=== PATIENT | female | born 1950 | race Caucasian/White ===

== ENCOUNTER → 2025-07-13 12:37 | Outpatient (REF) | payer MEDICARE, OTHER, SELFPAY ==
[2025-07-13 13:15] LABS: Hematocrit 41.3 % (37.0-47.0); Hemoglobin 14.2 g/dL (12.0-16.0); Mean Corp Hgb Conc. 34.4 g/dL (33.0-37.0); Mean Corpuscular Volume 96.5 fL (81.0-99.0); Nucleated Red Blood Cells % 0 %; Platelet Count 216 10^3/uL (130-400); Red Cell Dist. Width 12.9 % (11.5-14.5)
[2025-07-13 13:20] LABS: INR 1.02; PT 13.9 Sec (11.4-14.6)
[2025-07-13 13:25] LABS: ALT (SGPT) 26 U/L (0-35); AST (SGOT) 33 U/L (14-36); Albumin 4.9 g/dl (3.5-5.0); Alkaline Phosphatase 49 U/L (38-126); Blood Urea Nitrogen 10 mg/dl (7-17); Calcium 9.8 mg/dl (8.4-10.2); Carbon Dioxide 28 mmol/L (22-30); Chloride 101 mmol/L (98-107); Glucose 117 mg/dl (70-99); Magnesium 2.1 mg/dl (1.6-2.3); Potassium 4.4 mmol/L (3.5-5.1); Sodium 139 mmol/L (135-145); Total Protein 7.7 g/dl (6.3-8.2); eGFR > 60.00
== END ==
LOC: SDSPAT 12:37
PROVIDERS: ATTENDING PHYSICIAN Internal Medicine Cardiovascular Disease; FAMILY PHYSICIAN Student in an Organized Health Care Education/Training Program; OTHER PHYSICIAN Internal Medicine Cardiovascular Disease
DX: I48.0 Paroxysmal atrial fibrillation (principal)
CPT/HCPCS: 36415; 75572; 80053; 83735; 85025; 85610; 86850; 86900; 86901; 93005; Q9967

== ENCOUNTER → 2025-08-28 11:15 | Outpatient (REF) | payer MEDICARE, OTHER, SELFPAY ==
[2025-08-28 12:20] LABS: Hematocrit 41.0 % (37.0-47.0); Hemoglobin 13.7 g/dL (12.0-16.0); Mean Corp Hgb Conc. 33.4 g/dL (33.0-37.0); Mean Corpuscular Volume 97.9 fL (81.0-99.0); Nucleated Red Blood Cells % 0 %; Platelet Count 201 10^3/uL (130-400); Red Cell Dist. Width 13.0 % (11.5-14.5)
[2025-08-28 12:36] LABS: INR 1.00; PT 13.5 Sec (11.4-14.6)
[2025-08-28 12:53] LABS: ALT (SGPT) 31 U/L (0-35); AST (SGOT) 35 U/L (14-36); Albumin 4.7 g/dl (3.5-5.0); Alkaline Phosphatase 51 U/L (38-126); Blood Urea Nitrogen 7 mg/dl (7-17); Calcium 9.6 mg/dl (8.4-10.2); Carbon Dioxide 33 mmol/L (22-30); Chloride 100 mmol/L (98-107); Glucose 97 mg/dl (70-99); Magnesium 2.2 mg/dl (1.6-2.3); Potassium 4.4 mmol/L (3.5-5.1); Sodium 137 mmol/L (135-145); Total Protein 7.5 g/dl (6.3-8.2); eGFR > 60.00
== END ==
LOC: SDSPAT 11:15
PROVIDERS: ATTENDING PHYSICIAN Internal Medicine Cardiovascular Disease; FAMILY PHYSICIAN Student in an Organized Health Care Education/Training Program; REFERRING PHYSICIAN Internal Medicine Cardiovascular Disease
DX: I48.0 Paroxysmal atrial fibrillation (principal)
CPT/HCPCS: 36415; 80053; 83735; 85025; 85610; 86850; 86900; 86901; 93005

== ENCOUNTER 2025-09-26 07:55 | Day surgery (SDC) | payer MEDICARE, OTHER, SELFPAY ==
[2025-07-13 12:50] VITALS: BMI 17.8
[2025-08-28 11:51] VITALS: BMI 18.0
[2025-09-26] VITALS (17 sets, daily range): BP systolic 141–191; BP diastolic 52–76
[2025-09-26 11:38] LABS: ACT-LR - POC 282 Seconds (116-155)
[2025-09-26 11:54] LABS: ACT-LR - POC 314 Seconds (116-155)
--- NOTE | 2025-09-26 12:12 | ITS.CL.ABL ---
[employer] - Ablation
Ablation
Procedure Report:
ELECTROPHYSIOLOGY ABLATION STUDY
DATE:: September 26, 2025�����������������������������REFERRING: Dr. Cooper Kidd
INDICATION: Paroxysmal supraventricular tachycardia in the form of atrial fibrillation.� Prior history of mitral valve repair
HISTORY: See H and P.��As above
ANTIARRHYTHMIC DRUG: Multaq
PRE-PROCEDURE SAROJ: No intracardiac thrombus. Multiple jets of mild mitral digitation which are MISSY ring
PRESENTING RHYTHM: Sinus bradycardia
'TIME-OUT':��called and confirmed.
SEDATION/ANESTHESIA:��provided via the anesthesia department using general anesthesia (LMA).
INTRAVENOUS/ARTERIAL ACCESS:
Right femoral venous -8Fr
Left femoral venous - 8 Fr, 6 Fr
Lidocaine and [id number] suture bilaterally postprocedure
Ultrasound guidance for bilateral femoral vein access was utilized by me to obtain access with demonstration of normal anatomy
CHADS-VASC Score:
HAS-Bled Score
PROCEDURE:
1.��A decapolar CS catheter was placed within the CS for mapping and pacing.��This was also used as the reference catheter for the 3-D map.
2. The intracardiac ultrasound catheter was positioned in the RA to identify the FO for targeting of transseptal puncture, assist��in identification of the pulmonary vein ostia, monitoring pre and post ablation pulmonary vein flow velocities,
monitoring for 'bubble' formation during RF application as a sign of thermal injury,��and to monitor for pericardial effusion during mapping and ablation procedure.���Left atrial size, LV ejection fraction, and pulmonary vein flows were monitored
pre and post ablation procedure. The other valves were inspected and found to be free of significant regurgitation or stenosis.
3.��Half of the calculated heparin bolus was administered prior to the first transeptal puncture.��Transseptal puncture was performed to diagnose RA and LA pressure so that safetey of LA mapping and ablation could be further assessed, and to access
the left atrium and pulmonary veins for mapping and ablation.��This entailed advancing an 16.8 Afghan RF wire, sheath with dilator into the superior vena cava and withdrawing both (monitoring intracardiac ultrasound, fluoroscopy and tip pressure)
with the tip oriented toward the atrial septum.��The fossa ovalis was engaged (indicated by sudden displacement of the sheath tip as well as tenting of the fossa seen on intracardiac ultrasound).��Left atrial access required a pass with the
B[place]enbrough needle extended.��Left atrial catheter position was confirmed by pressure monitoring (RA mean pressure 2 mm Hg and LA mean presure 6�8 mm Hg answered with 1 L of hydration), LA saturation (99%),��as well as fluoroscopy.��The sheath was
advanced over the dilator and positioned in the left atrium.��The remainder of the calculated heparin bolus was administered and heparin was
infused to maintain ACT at 300 -350 seconds throughout the case.
4.��RA pacing was performed via the proximal decapolar poles and LA pacing was performed via the distal decapolar poles.
5. A quadrapolar catheter was first positioned at the His position for His Bundle recording which was tagged via the 3-D Navex sytem, and then passed to the RVA for RV pacing and recording.
6. The Penta spline grid catheter placed in each of the LIPV, LSPV, RSPV and the RIPV.��
7.��Next, a 3-D map was created using Navex.���A 3-D reconstructed CT image was compared to the 3-D Navex map to assist in anatomic interpretation, mapping and ablation.��The CT image and the NavX image were fused.
8. A total of 51 lesions were given in all of basket and flower pose. All of in basket post each of the 4 pulmonary veins rendering entrance and exit block. To the roof posterior wall and floor of the left atrium there was flower poses given with
entrance and exit block in the roof posterior wall floor of the left atrium. EP study post procedure purposefully induced atrial tachycardia which was variable in its activation both distal to proximal and proximal distal coronary sinus and PPI
greater than tachycardia cycle length of greater than 100 ms from both the CTI isthmus and mitral isthmus. As such we performed cardioversion with 1 200 J synchronized biphasic shock and interest next but was confirmed in all the structures.
Atrial extrastimuli and burst pacing down to 290 ms did not induce any other tachyarrhythmias.
9. Patient was noted to have relative bradycardia with a mildly elevated corrected sinus node recovery time and the patient will be discontinued on the antiarrhythmic drug post procedure.
TOTAL FLOURO TIME: 12.3 minutes 120 mGy
TOTAL RF DURATION: 0 minutes
REVERSAL OF HEPARIN: 30 mg of protamine, slow IV administration
COMPLICATIONS:
None
Intracardiac US shows no pericardial effusion post ablation.
SUMMARY:��
Complex left atrial mapping and ablation.
Isolation of all 4 pulmonary veins as well as the roof posterior wall and floor of the left atrium.
RECOMMENDATIONS:
1. Ambulate in 4 hours
2. Resume anticoagulation
3.��Out of bed and ambulate in 4 hours add consider to be discharged
4.��Discontinue Multaq around and will try low-dose propranolol but may be limited by bradycardia
Copy to: Dr. Cooper Kidd
--- NOTE | 2025-09-26 16:04 | W.PN.UPDATE ---
Update Note
Progress Note Update
Pt seen post PFA. Bilat groin sites without ht/bleeding, non tender. Post EKG NSR 60, no acute changes. Resume eliquis tonight. Stop multaq at this time. Will increase propranolol to 10mg daily instead of PRN. HR noted to be bradycardic prior to
procedure in 40-50s, now ranging 50-60s. Followup with Dr. Kidd in 1 month as scheduled. Home today if groin sites/tele remain stable.
== END 2025-09-26 17:10 | disposition home or self-care (01) ==
LOC: CATH 07:55
PROVIDERS: ATTENDING PHYSICIAN Internal Medicine Cardiovascular Disease; FAMILY PHYSICIAN Student in an Organized Health Care Education/Training Program; OTHER PHYSICIAN Internal Medicine Cardiovascular Disease
DX: I48.0 Paroxysmal atrial fibrillation (principal); I49.5 Sick sinus syndrome; I42.8 Other cardiomyopathies; I34.0 Nonrheumatic mitral (valve) insufficiency; I34.1 Nonrheumatic mitral (valve) prolapse; J44.9 Chronic obstructive pulmonary disease, unspecified; K21.9 Gastro-esophageal reflux disease without esophagitis; M41.9 Scoliosis, unspecified; M19.90 Unspecified osteoarthritis, unspecified site; G89.4 Chronic pain syndrome; F11.20 Opioid dependence, uncomplicated; M85.80 Other specified disorders of bone density and structure, unspecified site; F41.9 Anxiety disorder, unspecified; G47.00 Insomnia, unspecified; Z87.891 Personal history of nicotine dependence; Z79.899 Other long term (current) drug therapy; I25.2 Old myocardial infarction; I47.10 Supraventricular tachycardia, unspecified; I50.22 Chronic systolic (congestive) heart failure; Z79.01 Long term (current) use of anticoagulants; Z90.12 Acquired absence of left breast and nipple
CPT/HCPCS: C1732; C1894; C1730; C1769; C1892; C1759; 85347; 86900; 86901; 93005; 93656; 93657; C1733; C1766